=== PATIENT | female | born 1985 | race Caucasian/White ===

== ENCOUNTER → 2017-02-05 | Outpatient (CLI) | payer BC ==
[~2017-02-05] MED LIST: ESCI10TA17 PO; FRN PO; ZVR400 PO
== END | disposition home or self-care (01) ==
LOC: C.LABSPEC 13:40
PROVIDERS: ATTEND Obstetrics & Gynecology
DX: N89.8 Other specified noninflammatory disorders of vagina (principal)

== ENCOUNTER → 2017-06-19 | Outpatient (CLI) | payer BC ==
[~2017-06-19] MED LIST changes: -ESCI10TA17 PO; -FRN PO
== END | disposition home or self-care (01) ==
LOC: C.PAPS 10:20
PROVIDERS: ATTEND Obstetrics & Gynecology
DX: Z01.419 Encounter for gynecological examination (general) (routine) without abnormal findings (principal)

== ENCOUNTER 2017-07-09 09:52 | Emergency (ER) | payer BC ==
[~2017-07-09] VITALS: Ht 177.8 cm; Wt 70.7 kg
[2017-07-09 10:00] VITALS: TEMP 36.9; Ht 177.8 cm; Wt 70.7 kg
--- NOTE | 2017-07-09 10:28 | EMERGENCY ROOM VISIT NOTE ---
History Report prepared by Ford: Lazaro Beck Under the Supervision of: Dr. Dusty Vick D.O. First contact with patient: 10:07 Chief Complaint: HEADACHE Stated Complaint: MIGRAINE X 3 DAYS-SENT BY DR. PADMINI COX History of Present Illness The patient is a 32 year old female who presents to the Emergency Room with complaints of a headache that began four days ago. She has a history of migraines and a prior stroke. 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 After her stroke, she began to experience these migraines. She received multiple tests and work ups around that time period for these migraines that were negative. A couple days ago, her migraine began suddenly and is currently starting to subside. She believes that it may be stress related. She is also been experiencing neck stiffness. She denies any fevers, chills, nausea, vomiting, or abdominal pain. She had a lumpectomy many years ago that was benign. She denies any recent travels or abnormal spells of physical activity. She denies any chance of . Source of History: patient Onset: 4 days ago Position: head Symptom Intensity: mild Quality: ache Timing: other (Improving) Associated Symptoms: + neck pain (neck stiffness), No fevers, No chills, No nausea, No vomiting, No abdominal pain Review of Systems See HPI for pertinent positives & negatives. A total of 10 systems reviewed and were otherwise negative. Past Medical & Surgical Medical Problems: (1) Chronic headaches (2) dissection of cerebral artery Family History Patient reports no known family medical history. Social History Smoking Status: Former Smoker Smokeless Tobacco Use: No Alcohol Use: occasionally Drug Use: none Marital Status: Housing Status: lives with family Occupation Status: employed Current/Historical Medications Scheduled Acyclovir (Acyclovir), 400 MG PO BID Escitalopram (Lexapro), 10 MG PO DAILY Scheduled PRN Tbsqivxyxy-Eltfera-Dmihdkui (Butalbital/Aspirin/Caffei 50-325-40 mg), 1 CAP PO UD PRN for Migraine Allergies Coded Allergies: Cephalosporins (Verified Allergy, Severe, THORAT SWELLING/WELTS (FROM CEFTIN AND FROM KEFZOL), 07/09/17) Ciprofloxacin (Unverified Allergy, Intermediate, hives, 07/09/17) Physical Exam Vital Signs Date Time Temp Pulse Resp B/P (MAP) Pulse Ox O2 Delivery O2 Flow Rate FiO2 07/09/17 15:08 75 16 101/58 98 07/09/17 14:00 54 16 115/81 100 Room Air 07/09/17 13:01 54 16 115/81 100 Room Air 07/09/17 12:30 57 18 112/76 99 Room Air 07/09/17 12:06 54 18 104/69 100 Room Air 07/09/17 11:30 54 18 102/73 100 Room Air 07/09/17 11:00 53 18 107/72 100 Room Air 07/09/17 10:00 36.9 63 18 113/73 99 Room Air Physical Exam GENERAL: Patient is awake, alert, and in no acute distress. Patient is resting comfortably and showing no signs of anxiety EYES: The conjunctivae are clear. The pupils are round and reactive. EARS, NOSE, MOUTH AND THROAT: The nose is without any evidence of any deformity. Mucous membranes are moist tongue is midline NECK: The neck is nontender and supple. RESPIRATORY: Normal respiratory effort is noted there is no evidence of wheezing rhonchi or rales CARDIOVASCULAR: Regular rate and rhythm noted there no murmurs rubs or gallops normal S1 normal S2 GASTROINTESTINAL: The abdomen is soft. Bowel sounds are present in all quadrants. Abdomen is nontender MUSCULOSKELETAL/EXTREMITIES: There is no evidence of gross deformity full range of motion is noted in the hips and shoulders SKIN: There is no obvious evidence of any rash. There are no petechiae, pallor or cyanosis noted. NEUROLOGIC: Patient is awake alert and oriented x3 strength is symmetric patellar reflexes are 2+ bilaterally Medical Decision & Procedures ER Provider Diagnostic Interpretation: Radiology results as stated below per my review and radiologist interpretation: HEAD WITHOUT CONTRAST (CT) CLINICAL HISTORY: 32 years-old Female presenting with EVALUATE ALTERED MENTAL STATUS/WEAKNESS. TECHNIQUE: Multidetector CT imaging of the head was performed without the use of intravenous contrast. IV contrast: None. A dose lowering technique was used consistent with the principles of ALARA (as low as reasonably achievable). COMPARISON: 03/14/2011. CT DOSE (mGy.cm): The estimated cumulative dose is 638.56 mGycm. 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 Ventricles and sulci normal in size. Cystic encephalomalacia in the lateral right cerebellar hemisphere from prior infarct. No mass effect or midline shift. No hemorrhage or acute territorial infarct. No extra-axial fluid collection. Paranasal sinuses and mastoid air cells clear. Calvarium intact. IMPRESSION: 1. No acute intracranial abnormality. 2. Old infarct in the right cerebellar hemisphere. Electronically signed by: Dex Cortes M.D. 07/09/2017 10:57 AM Dictated Date/Time: 07/09/2017 10:52 AM MRA NECK WITHOUT CONTRAST CLINICAL HISTORY: Headache. History of vertebral dissection. COMPARISON STUDY: February 2012 FINDINGS: MR angiography of the neck was performed without intravenous contrast. There is no evidence of carotid or vertebral artery stenosis or dissection on this noncontrast examination. IMPRESSION: No evidence of carotid or vertebral artery stenosis aneurysm or dissection, on this noncontrast study. Electronically signed by: Glen Mcleod M.D. 07/09/2017 2:19 PM Dictated Date/Time: 07/09/2017 2:17 PM MRA HEAD WITHOUT CONTRAST HISTORY: 32 years-old Female [place], hx of verterbral dissection acute headache with history of vertebral dissection COMPARISON: MRA of the neck 03/10/2012 TECHNIQUE: MRA of the head obtained without the use of contrast with MIP reformats. FINDINGS: The imaged bilateral internal carotid arteries are patent and within normal limits. The bilateral middle cerebral and anterior cerebral arteries are widely patent. The anterior communicating artery is also unremarkable. The right vertebral artery appears dominant. The bilateral imaged vertebral arteries are patent. Basilar artery is also patent and unremarkable. Bilateral posterior cerebral arteries are patent and within normal limits. Bilateral posterior communicating arteries are also unremarkable. No high-grade stenosis, aneurysm, dissection or proximal branch occlusion. Encephalomalacia related to remote infarction is again noted involving the superior right cerebellar hemisphere the distribution of the superior cerebellar artery. IMPRESSION: 1. Unremarkable MRA of the head without aneurysm, dissection, high-grade stenosis or proximal branch occlusion. 2. Encephalomalacia of the superior right cerebellar hemisphere is again seen compatible with remote infarction. The above report was generated using voice recognition software. It may contain grammatical, syntax or spelling errors. Electronically signed by: Carlos Nunez M.D. 07/09/2017 1:55 PM Dictated Date/Time: 07/09/2017 1:50 PM MRI OF THE BRAIN WITHOUT IV CONTRAST CLINICAL HISTORY: Migraine headache. COMPARISON STUDY: CT of the brain dated 07/09/2017. MRI of the brain dated 11/02/2010. TECHNIQUE: MRI of the brain was performed utilizing various T1 and T2-weighted sequences in the axial, sagittal, and coronal planes. IV contrast was not administered for this examination. FINDINGS: Brain parenchyma: A focus of right cerebellar encephalomalacia is unchanged and consistent with a remote insult. There is a subcentimeter focus of T2 signal in amount within the right frontal white matter. This is of doubtful significance as an isolated finding. There is no hemorrhage or mass effect. There is no restricted diffusion to suggest acute ischemia. Michael-white matter differentiation is preserved. No extra-axial fluid collection is seen. The cerebellar tonsils are normal in configuration. Ventricles, sulci, and cisterns: Normal in configuration. Pituitary and sella: Unremarkable. Intracranial vasculature: Normal flow voids are maintained at the skull base. Orbits: The bony orbits are grossly intact. Orbital contents are normal in appearance. Sinuses and mastoids: Clear. Calvarium: Unremarkable. Cervical cord: Partially visualized cervical spinal cord is normal in morphology and signal intensity. IMPRESSION: 1. No acute intracranial abnormality. 2. A focus of right cerebellar encephalomalacia is unchanged from previous and consistent with a remote insult. Electronically signed by: Josiah Mustafa M.D. 07/09/2017 1:58 PM Dictated Date/Time: 07/09/2017 1:55 PM Laboratory Results 07/09/17 10:40 Red Blood Count 4.50, Mean Corpuscular Volume 92.2, Mean Corpuscular Hemoglobin 30.9, Mean Corpuscular Hemoglobin Concent 33.5, Mean Platelet Volume 10.1, Neutrophils (%) (Auto) 48.6, Lymphocytes (%) (Auto) 43.3, Monocytes (%) (Auto) 6.3, Eosinophils (%) (Auto) 1.0, Basophils (%) (Auto) 0.6, Neutrophils # (Auto) 2.55, Lymphocytes # (Auto) 2.27, Monocytes # (Auto) 0.33, Eosinophils # (Auto) 0.05, Basophils # (Auto) 0.03 07/09/17 10:40 Test 07/09/17 10:40 White Blood Count 5.24 K/uL (4.8-10.8) Red Blood Count 4.50 M/uL (4.2-5.4) Hemoglobin 13.9 g/dL (12.0-16.0) Hematocrit 41.5 % (37-47) Mean Corpuscular Volume 92.2 fL (80-100) Mean Corpuscular Hemoglobin 30.9 pg (25-34) Mean Corpuscular Hemoglobin Concent 33.5 g/dl (32-36) Platelet Count 237 K/uL (130-400) Mean Platelet Volume 10.1 fL (7.4-10.4) Neutrophils (%) (Auto) 48.6 % Lymphocytes (%) (Auto) 43.3 % Monocytes (%) (Auto) 6.3 % Eosinophils (%) (Auto) 1.0 % Basophils (%) (Auto) 0.6 % Neutrophils # (Auto) 2.55 K/uL (1.4-6.5) Lymphocytes # (Auto) 2.27 K/uL (1.2-3.4) Monocytes # (Auto) 0.33 K/uL (0.11-0.59) Eosinophils # (Auto) 0.05 K/uL (0-0.5) Basophils # (Auto) 0.03 K/uL (0-0.2) RDW Standard Deviation 46.6 fL (36.4-46.3) RDW Coefficient of Variation 13.9 % (11.5-14.5) Immature Granulocyte % (Auto) 0.2 % Immature Granulocyte # (Auto) 0.01 K/uL (0.00-0.02) Erythrocyte Sedimentation Rate 2 mm/hr (0-21) Prothrombin Time 10.8 SECONDS (9.0-12.0) Prothromb Time International Ratio 1.0 (0.9-1.1) Activated Partial Thromboplast Time 26.2 SECONDS (21.0-31.0) Partial Thromboplastin Ratio 1.0 Urine Color YELLOW Urine Appearance CLEAR (CLEAR) Urine pH 6.0 (4.5-7.5) Urine Specific [place] 1.009 (1.000-1.030) Urine Protein NEG (NEG) Urine Glucose (UA) NEG (NEG) Urine Ketones NEG (NEG) Urine Occult Blood NEG (NEG) Urine Nitrite NEG (NEG) Urine Bilirubin NEG (NEG) Urine Urobilinogen NEG (NEG) Urine Leukocyte Esterase NEG (NEG) Anion Gap 8.0 mmol/L (3-11) Est Creatinine Clear Calc Drug Dose 81.6 ml/min Estimated GFR () 80.2 Estimated GFR (Non- 69.2 BUN/Creatinine Ratio 8.6 (10-20) Calcium Level 9.3 mg/dl (8.5-10.1) Magnesium Level 2.4 mg/dl (1.8-2.4) Total Bilirubin 1.3 mg/dl (0.2-1) Direct Bilirubin 0.3 mg/dl (0-0.2) Aspartate Amino Transf (AST/SGOT) 16 U/L (15-37) Alanine Aminotransferase (ALT/SGPT) 18 U/L (12-78) Alkaline Phosphatase 47 U/L (45-117) Troponin I < 0.015 ng/ml (0-0.045) C-Reactive Protein < 0.29 mg/dl (0-0.29) Total Protein 7.8 gm/dl (6.4-8.2) Albumin 4.5 gm/dl (3.4-5.0) Thyroid Stimulating Hormone (TSH) 1.170 uIu/ml (0.300-4.500) Human Chorionic Gonadotropin, Qual NEG (NEG) Laboratory results per my review. Medications Administered Medications (Trade) Dose Ordered Sig/Reuben Route Start Time Stop Time Status Last Admin Dose Admin Diphenhydramine HCl (Benadryl Inj) 25 mg NOW STAT IV 07/09/17 12:14 07/09/17 12:15 DC 07/09/17 13:00 25 MG Promethazine HCl 12.5 mg/Sodium Chloride 50.5 ml @ 204 mls/hr NOW STAT IV 07/09/17 12:14 07/09/17 12:28 DC 07/09/17 13:00 204 MLS/HR ECG Indication: other (Headache) Rate (beats per minute): 59 Rhythm: sinus bradycardia Findings: no ectopy, other (no STS abnormalities) Comparison ECG Date: 05/09/14 Change: no significant change ED Course 1007: The patient was evaluated in room C5. A complete history and physical examination were performed. 1214: Ordered Promethazine HCl 12.5 mg/Sodium Chloride 50.5 ml @ 204 mls/hr IV, Benadryl Inj 25 mg IV 1515: Upon reevaluation, the patient is resting. I discussed the results and treatment plan with her. She verbalized agreement of the treatment plan. She was discharged home. Medical Decision Differential diagnosis: Etiologies such as migraine headache, meningitis, sinusitis, CO exposure, ICH, SAH, infection, tumor, headache, sinus thrombosis, arterial dissection, as well as others were entertained. Nursing notes reviewed. The patient's previous electronic medical records reviewed. The patient is a 32-year-old female who presented to the emergency department for an evaluation of headache. The patient states that she's been having problems with what she describes as a migraine headache for the last 3 days. She doesn't a history of migraine headaches and she states her headache at this time is starting to improve however when she called her primary care physician today for an appointment she was sent to the emergency department. The patient does have a history of vertebral artery dissection. She did not have any acute trauma today. She did not have any acute trauma at the onset of the symptoms. The patient does not of any focal neurologic deficit. She was treated with medications for migraine in the emergency department. I discussed the patient's laboratory and radiographic studies with her. On her previous visit where she was diagnosed with the vertebral artery dissection she had an MRI MRA of the head as well as an MRA of the neck. I repeated these studies. I discussed her results with her. She was encouraged to rest and avoid any strenuous activity. She was also encouraged to continue all medications as prescribed and follow-up with her primary care physician as soon as possible. She was also encouraged to discuss the possibility that she may require a referral to a neurologist or possibly other neuro imaging if symptoms do not improve in a timely fashion. Otherwise she was encouraged to return to the emergency department immediately if symptoms change worsen or the need arises. Medication Reconcilliation Current Medication List: was personally reviewed by me Blood Pressure Screening Patient's blood pressure: Normal blood pressure Blood pressure disposition: Did not require urgent referral Impression Primary Impression: Migraine headache Scribe Attestation The scribe's documentation has been prepared under my direction and personally reviewed by me in its entirety. I confirm that the note above accurately reflects all work, treatment, procedures, and medical decision making performed by me. Departure Information Dispostion Home / Self-Care Referrals No Doctor, Assigned (PCP) Padmini Harrison M.D. Forms HOME CARE DOCUMENTATION FORM, IMPORTANT VISIT INFORMATION, Work Instructions Patient Instructions ED Headache Migraine, Headache Migraine Triggers Prevent, [facility] Additional Instructions Continue all medications as prescribed. Rest and avoid any strenuous activity. Follow-up with your family doctor soon as possible. Return immediately if symptoms change worsen or the need arises. Problem Qualifiers Primary Impression: Migraine headache Migraine type: unspecified Status migrainosus presence: without status migrainosus Intractability: not intractable Qualified Codes: G43.909 - Migraine, unspecified, not intractable, without status migrainosus
[2017-07-09 10:46] LABS: BASO % 0.6 %; BASO ABS # 0.03 K/uL (0-0.2); COMPLETE YES; HEMATOCRIT 41.5 % (37-47); IG% 0.2 %; LYMPH % 43.3 %; LYMPH ABS # 2.27 K/uL (1.2-3.4); MEAN CELL VOLUME 92.2 fL (80-100); MEAN CORPUSCULAR HEMOGLOBIN 30.9 pg (25-34); MEAN CORPUSCULAR HGB CONC 33.5 g/dl (32-36); MEAN PLATELET VOLUME 10.1 fL (7.4-10.4); MONO % 6.3 %; NEUT % 48.6 %; PLATELET COUNT 237 K/uL (130-400); WHITE BLOOD COUNT 5.24 K/uL (4.8-10.8)
[2017-07-09 10:57] LABS: URINE APPEARANCE CLEAR (CLEAR); URINE BILIRUBIN NEG (NEG); URINE COLOR YELLOW; URINE NITRITE NEG (NEG); URINE SPECIFIC GRAVITY 1.009 (1.000-1.030); UROBILINOGEN NEG (NEG)
[2017-07-09] MEDS ORDERED: FRN PO (10:57)
[2017-07-09] MEDS ORDERED: ESCI10TA17 PO (10:57)
[2017-07-09 10:58] LABS: PROTHROMBIN TIME (PATIENT) 10.8 SECONDS (9.0-12.0)
--- NOTE | 2017-07-09 10:58 | DIAGNOSTIC IMAGING REPORT ---
HEAD WITHOUT CONTRAST (CT) CLINICAL HISTORY: 32 years-old Female presenting with EVALUATE ALTERED MENTAL STATUS/WEAKNESS. TECHNIQUE: Multidetector CT imaging of the head was performed without the use of intravenous contrast. IV contrast: None. A dose lowering technique was used consistent with the principles of ALARA (as low as reasonably achievable). COMPARISON: 03/14/2011. CT DOSE (mGy.cm): The estimated cumulative dose is 638.56 mGycm. 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 Ventricles and sulci normal in size. Cystic encephalomalacia in the lateral right cerebellar hemisphere from prior infarct. No mass effect or midline shift. No hemorrhage or acute territorial infarct. No extra-axial fluid collection. Paranasal sinuses and mastoid air cells clear. Calvarium intact. IMPRESSION: 1. No acute intracranial abnormality. 2. Old infarct in the right cerebellar hemisphere. Electronically signed by: Dex Cortes M.D. 07/09/2017 10:57 AM Dictated Date/Time: 07/09/2017 10:52 AM
[2017-07-09 11:03] LABS: MANUAL MICROSCOPIC REQUIRED? NO; REVIEW REQ? NO
[2017-07-09 11:07] LABS: ALT/SGPT 18 U/L (12-78); BLOOD UREA NITROGEN 9 mg/dl (7-18); BUN/CREATININE RATIO 8.6 (10-20); C-REACTIVE PROTEIN < 0.29 mg/dl (0-0.29); CALCIUM 9.3 mg/dl (8.5-10.1); CARBON DIOXIDE 26 mmol/L (21-32); CHLORIDE 106 mmol/L (98-107); CREATININE 1.05 mg/dl (0.60-1.20); GLUCOSE 89 mg/dl (70-99); MAGNESIUM 2.4 mg/dl (1.8-2.4); POTASSIUM 3.6 mmol/L (3.5-5.1); SODIUM 140 mmol/L (136-145)
[2017-07-09 11:12] LABS: PREG INTERNAL NEGATIVE QC NEG CLEAR BACKGROUND; PREG INTERNAL POSITIVE QC POS CONTROL LINE
[2017-07-09 11:15] LABS: ALKALINE PHOSPHATASE 47 U/L (45-117); AST/SGOT 16 U/L (15-37)
[2017-07-09] MEDS ORDERED: PROMETHAZINE HCL INJ 12.5 MG in SODIUM CHLORIDE 0.9% 50ML 50 ML IV STA (12:14)
[2017-07-09] MEDS ORDERED: DiphenhydrAMINE HCL 50 MG/ML VIAL IV STA (12:14)
--- NOTE | 2017-07-09 13:56 | DIAGNOSTIC IMAGING REPORT ---
MRA HEAD WITHOUT CONTRAST HISTORY: 32 years-old Female [place], hx of verterbral dissection acute headache with history of vertebral dissection COMPARISON: MRA of the neck 03/10/2012 TECHNIQUE: MRA of the head obtained without the use of contrast with MIP reformats. FINDINGS: The imaged bilateral internal carotid arteries are patent and within normal limits. The bilateral middle cerebral and anterior cerebral arteries are widely patent. The anterior communicating artery is also unremarkable. The right vertebral artery appears dominant. The bilateral imaged vertebral arteries are patent. Basilar artery is also patent and unremarkable. Bilateral posterior cerebral arteries are patent and within normal limits. Bilateral posterior communicating arteries are also unremarkable. No high-grade stenosis, aneurysm, dissection or proximal branch occlusion. Encephalomalacia related to remote infarction is again noted involving the superior right cerebellar hemisphere the distribution of the superior cerebellar artery. IMPRESSION: 1. Unremarkable MRA of the head without aneurysm, dissection, high-grade stenosis or proximal branch occlusion. 2. Encephalomalacia of the superior right cerebellar hemisphere is again seen compatible with remote infarction. The above report was generated using voice recognition software. It may contain grammatical, syntax or spelling errors. Electronically signed by: Carlos Nunez M.D. 07/09/2017 1:55 PM Dictated Date/Time: 07/09/2017 1:50 PM
--- NOTE | 2017-07-09 14:00 | DIAGNOSTIC IMAGING REPORT ---
MRI OF THE BRAIN WITHOUT IV CONTRAST CLINICAL HISTORY: Migraine headache. COMPARISON STUDY: CT of the brain dated 07/09/2017. MRI of the brain dated 11/02/2010. TECHNIQUE: MRI of the brain was performed utilizing various T1 and T2-weighted sequences in the axial, sagittal, and coronal planes. IV contrast was not administered for this examination. FINDINGS: Brain parenchyma: A focus of right cerebellar encephalomalacia is unchanged and consistent with a remote insult. There is a subcentimeter focus of T2 signal in amount within the right frontal white matter. This is of doubtful significance as an isolated finding. There is no hemorrhage or mass effect. There is no restricted diffusion to suggest acute ischemia. Michael-white matter differentiation is preserved. No extra-axial fluid collection is seen. The cerebellar tonsils are normal in configuration. Ventricles, sulci, and cisterns: Normal in configuration. Pituitary and sella: Unremarkable. Intracranial vasculature: Normal flow voids are maintained at the skull base. Orbits: The bony orbits are grossly intact. Orbital contents are normal in appearance. Sinuses and mastoids: Clear. Calvarium: Unremarkable. Cervical cord: Partially visualized cervical spinal cord is normal in morphology and signal intensity. IMPRESSION: 1. No acute intracranial abnormality. 2. A focus of right cerebellar encephalomalacia is unchanged from previous and consistent with a remote insult. Electronically signed by: Josiah Mustafa M.D. 07/09/2017 1:58 PM Dictated Date/Time: 07/09/2017 1:55 PM
--- NOTE | 2017-07-09 14:21 | DIAGNOSTIC IMAGING REPORT ---
MRA NECK WITHOUT CONTRAST CLINICAL HISTORY: Headache. History of vertebral dissection. COMPARISON STUDY: February 2012 FINDINGS: MR angiography of the neck was performed without intravenous contrast. There is no evidence of carotid or vertebral artery stenosis or dissection on this noncontrast examination. IMPRESSION: No evidence of carotid or vertebral artery stenosis aneurysm or dissection, on this noncontrast study. Electronically signed by: Glen Mcleod M.D. 07/09/2017 2:19 PM Dictated Date/Time: 07/09/2017 2:17 PM
[2017-07-09 15:08] VITALS: BP 101/58; PULSE 75; O2SAT 98
== END 2017-07-09 15:16 | disposition home or self-care (01) ==
LOC: C.EDB 09:54 → C.EDC 15:16
DX: G43.909 Migraine, unspecified, not intractable, without status migrainosus (principal); Z86.73 Personal history of transient ischemic attack (TIA), and cerebral infarction without residual deficits; Z87.891 Personal history of nicotine dependence; Z98.890 Other specified postprocedural states